=== PATIENT | male | born 1950 | race Caucasian/White ===

== ENCOUNTER 2016-10-10 23:26 | Inpatient (IN) | payer OTHER, MEDICARE, BC ==
[2016-10-10] MEDS ORDERED: ACETAMINOPHEN TAB 500 MG TAB PO STA (23:58)
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
[2016-10-11] MEDS: SODIUM CHLORIDE 0.9% 500 ML IV SCH (00:31)
[2016-10-11 00:33] LABS: Basophils # (A) 0.1 k/uL (0-0.2); Basophils % (A) 1 %; CHCM 33.5; Eosinophils # (A) 0.1 k/uL (0-0.7); Eosinophils % (A) 1 %; HCT 46.8 % (39.0-53.0); HDW 2.63; HGB 14.9 gm/dL (13.0-17.5); Luc # (Auto) 0.16; Luc % (Auto) 1; Lymphocytes # (A) 1.2 k/uL (1.0-4.8); Lymphocytes % (A) 9 %; MCH 26.7 pg (25.0-35.0); MCHC 31.9 g/dL (31.0-37.0); MCV 83.9 fL (80.0-100.0); Mean Platelet Volume 8.6; Monocytes # (A) 0.6 k/uL (0-1.0); Monocytes % (A) 4 %; Neutrophils # (A) 11.1 k/uL (1.3-7.7); Neutrophils % (A) 84 %; RBC 5.58 m/uL (4.30-5.90); RDW 13.3 % (11.5-15.5); WBC 13.3 k/uL (3.8-10.6); WBC (Perox) 12.44
[2016-10-11 00:45] LABS: ALT 49 U/L (21-72); AST 25 U/L (17-59); Alkaline Phosphatase 92 U/L (38-126); Anion Gap 14 mmol/L; Blood Urea Nitrogen 17 mg/dL (9-20); Calcium 9.2 mg/dL (8.4-10.2); Carbon Dioxide 26 mmol/L (22-30); Chloride 101 mmol/L (98-107); Glucose 160 mg/dL (74-99); Non-African American GFR(MDRD) >60 (>60 ml/min/1.73 sqM); Potassium 3.9 mmol/L (3.5-5.1); Sodium 141 mmol/L (137-145); Total Bilirubin 0.7 mg/dL (0.2-1.3); Total Protein 7.8 g/dL (6.3-8.2)
[2016-10-11 01:06] LABS: Troponin I 0.015 ng/mL (0.000-0.034)
--- NOTE | 2016-10-11 01:19 | XR ---
EXAMINATION TYPE: XR chest 2V DATE OF EXAM: 10/11/2016 1:00 AM COMPARISON: None. HISTORY: Chills and fever. TECHNIQUE: Frontal and lateral views of the chest are obtained. FINDINGS: Suspected mild infiltrates and atelectasis in the right lung base. No pneumothorax or pleural effusion. The cardiac silhouette size is within normal limits. The osseous structures are intact. IMPRESSION: 1. Mild infiltrate and atelectasis is suspected in the right lung base.
[2016-10-11 01:22] LABS: Appearance,Urine Clear (Clear); Bilirubin,Urine Negative (Negative); Glucose,Urine (UA) Trace (Negative); Ketones,Urine Trace (Negative); Leukocyte Esterase,Urine Negative (Negative); Mucus,Urine Rare /hpf; Nitrite,Urine Negative (Negative); Particle Count 1535; Protein,Urine Trace (Negative); RBC,Urine 6 /hpf (0-5); Specific Gravity,Urine 1.017 (1.001-1.035); UA Billing (MACRO vs. MICRO) MICRO; Urobilinogen,Urine <2.0 mg/dL (<2.0); WBC,Urine 1 /hpf (0-5)
[2016-10-11] MEDS ORDERED: PNEUMONIA PROTOCOL UTILIZED 1 EACH MISC PO PRN (01:54)
[2016-10-11] MEDS ORDERED: AZITHROMYCIN 500 MG in SODIUM CHLORIDE 0.9% 250 ML IVPB STA (01:54)
[2016-10-11] MEDS ORDERED: LEVOFLOXACIN 750MG-D5W PMX 750 MG in DEXTROSE/WATER 1 150ML.BAG IVPB STA (01:59)
[2016-10-11] MEDS ORDERED: PIPERACILLIN-TAZOBACTAM 3.375 GM in DEXTROSE/WATER 1 50ML.BAG IVPB STA (01:59)
[2016-10-11] MEDS ORDERED: ACETAMINOPHEN TAB 325 MG TAB PO PRN (02:06)
[2016-10-11] MEDS: SODIUM CHLORIDE 0.9% 1,000 ML IV SCH ×2 (02:22→12:31)
[2016-10-11 06:23] LABS: Creatine Kinase MB 0.7 ng/mL (0.0-2.4); Troponin I 0.013 ng/mL (0.000-0.034)
[2016-10-11 07:42] VITALS: BP 127/73; PULSE 61; RESP 20; TEMP 97.6
[2016-10-11] MEDS ORDERED: PIPERACILLIN-TAZOBACTAM 3.375 GM in DEXTROSE/WATER 1 50ML.BAG IVPB SCH (12:00)
[2016-10-11 12:58] LABS: Creatine Kinase 134 U/L (55-170)
[2016-10-11 13:10] LABS: Creatine Kinase MB 0.9 ng/mL (0.0-2.4); Troponin I <0.012 ng/mL (0.000-0.034)
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
[2016-10-12] MEDS ORDERED: AZITHROMYCIN 500 MG TAB PO SCH (01:54)
[2016-10-12] MEDS ORDERED: LEVOFLOXACIN 750MG-D5W PMX 750 MG in DEXTROSE/WATER 1 150ML.BAG IVPB SCH (09:00)
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
== END 2016-10-11 14:40 | disposition home or self-care (01) | DRG 871 ==
LOC: EC 23:26 → 4MS4W 10-11 02:06
PROVIDERS: ADMIT Internal Medicine; ATTEND Internal Medicine
DX: A41.9 Sepsis, unspecified organism (principal); J69.0 Pneumonitis due to inhalation of food and vomit; I10 Essential (primary) hypertension; Z87.01 Personal history of pneumonia (recurrent); Z87.442 Personal history of urinary calculi; Z87.891 Personal history of nicotine dependence
CPT/HCPCS: 36415; 71020; 80053; 81001; 82550; 82553; 83605; 84484; 85025; 87040; 87086; 87502; 96361; 96365; 99285

== ENCOUNTER 2016-11-20 07:24 | Day surgery (SDC) | payer MEDICARE, BC ==
[2016-11-18 09:33] VITALS: BMI 48.7
[~2016-11-20 07:24] MED LIST: LACTATED RINGERS 1,000 ML IV SCH
[2016-11-20 07:46] VITALS: RESP 16; TEMP 97
[2016-11-20] MEDS ORDERED: LIDOCAINE 1% 20 ML VIAL (10MG/ML) FOR IV START INTRADERMA ONE (08:16)
[2016-11-20 08:17] LABS: Glucose,Whole Blood 116 mg/dL (75-99)
[2016-11-20] MEDS ORDERED: PROPOFOL 10 MG/ML 20 ML VIAL IV ONE (08:25)
[2016-11-20] MEDS ORDERED: LIDOCAINE 1% INJ 10MG/ML (20 ML MDV) ONE (08:25)
--- NOTE | 2016-11-20 08:48 | P.PCN ---
Date of Procedure: 11/20/16 Procedure(s) Performed: Procedure: Total colonoscopy. Preoperative diagnosis: Screening for neoplasia. Postoperative diagnosis: Sigmoid diverticulosis with no evidence of acute diverticulitis, strictures, polyps or cancer. Preparation: HalfLytely prep. Sedation: Was provided by anesthesia. Brief clinical history: The patient is a 66-year-old male who is referred for this evaluation for screening for neoplasia age being his risk factor. He had a prior exam in 8-10 years ago. He has no abdominal complaints, bleeding or anemia. Procedure: With the patient on his left lateral decubitus position and after informed consent and adequate sedation, the perianal area was inspected and it did not show any fissures or fistulas. There were no masses felt on digital rectal examination. The Olympus CFQ 160L Was then inserted in the rectum in the usual fashion and advanced to the cecum. The mucosa appeared healthy. No polyps or tumors were seen. Several diverticular orifices were seen scattered in the sigmoid with no evidence of acute diverticulitis or strictures. I retroflexed endoscope in the rectum before the endoscope was withdrawn. The patient tolerated the procedure well. Plan: The patient was reassured. Discussed dietary measures. He will follow up with you as planned and I recommended repeat exam in 10 years.
[2016-11-20 09:19] VITALS: BP 154/86; PULSE 68
== END 2016-11-20 09:34 | disposition home or self-care (01) ==
LOC: ORWHC2ENDO 07:24
DX: Z12.11 Encounter for screening for malignant neoplasm of colon (principal); K57.30 Diverticulosis of large intestine without perforation or abscess without bleeding; I10 Essential (primary) hypertension; E11.9 Type 2 diabetes mellitus without complications; Z87.891 Personal history of nicotine dependence; Z79.899 Other long term (current) drug therapy
CPT/HCPCS: J2001; J2704; G0121

== ENCOUNTER → 2017-05-12 | Outpatient (CLI) | payer MEDICARE, BC ==
[2017-05-12 13:45] LABS: Blood Urea Nitrogen 22 mg/dL (9-20); Non-African American GFR(MDRD) >60 (>60 ml/min/1.73 sqM)
--- NOTE | 2017-05-12 14:47 | CT ---
EXAMINATION TYPE: CT abdomen pelvis w con DATE OF EXAM: 05/12/2017 COMPARISON: NONE INDICATION: Hematuria DLP: 4595 mGycm, Automated exposure control for dose reduction was used. CONTRAST: 100 mL of Omnipaque 300. Study performed with Oral Contrast TECHNIQUE: Axial images were obtained from above the diaphragm to the pubic rami in the axial plane a t 5 mm thick sections. Reconstructed images are reviewed on the computer in the coronal plane. FINDINGS: Limited CT sections are obtained the lung bases. The lung bases are clear. CT ABDOMEN: Liver: Tiny cyst may be in the lateral right lobe of liver. This is too small to classify. Liver is o therwise unremarkable. Spleen: Normal Pancreas: Normal Adrenal glands: The adrenal glands are normal. Gallbladder: Normal Kidneys: No masses are evident. There is a 1.3 x 0.9 cm calcification within the left renal pelvis. N o hydronephrosis is evident. No hydroureter is evident. There is a nonobstructing calcification at th e inferior pole of the left kidney measuring 0.6 cm. Adjacent 0.3 cm calcification is also present. Aorta: Vascular calcification is within the aorta. Inferior vena cava: Normal. CT PELVIS: Loops of bowel within the abdomen and pelvis are normal. There are loops of bowel which are incom pletely distended or lack oral contrast limiting their evaluation. Appendix: Normal as visualized. Urinary bladder: Normal. Genitourinary structures: Prostate is prominent. Some minimal calcification is present. Osseous structures: There is some lucency within the medial right iliac wing which appears to have so mewhat smooth margins. Facet degenerative changes are present. IMPRESSIONS: 1. Nonobstructing left renal pelvis stone. Nonobstructing inferior pole renal stones are present. 2. Probable tiny cyst within the right lobe liver. 3. Lucency within the medial right iliac wing. This is more benign appearance. Consider short-term fo llow-up.
== END | disposition home or self-care (01) ==
LOC: RADCTMAIN 12:19
PROVIDERS: ATTEND Family Medicine
DX: N20.0 Calculus of kidney (principal); R93.7 Abnormal findings on diagnostic imaging of other parts of musculoskeletal system
CPT/HCPCS: 82565; 84520; 74177; 36415; Q9967

== ENCOUNTER → 2018-05-04 | Outpatient (CLI) | payer MEDICARE ==
--- NOTE | 2018-05-05 08:18 | CT ---
EXAMINATION TYPE: CT abdomen pelvis w con DATE OF EXAM: 05/04/2018 COMPARISON: HISTORY: Gross hematuria. CT DLP: 2554.7 mGycm CONTRAST: CT scan of the abdomen and pelvis is performed with Oral Contrast and with IV Contrast, patient injec rocky with 100ml mL of Isovue 300. FINDINGS: LUNG BASES-: No visible nodule. No infiltrate. LIVER/GB: No calcified gallstones. No space occupying hepatic lesion. Biliary tree is of normal ca liber. PANCREAS: No inflammation. No distinct mass. SPLEEN: No splenic enlargement. No lesion seen. ADRENALS: No nodule. No thickening. KIDNEYS/BLADDER: No hydronephrosis. 1.2 cm calculus left renal pelvis. There is mild urothelial thi ckening. Additional calculi lower pole left kidney. Tiny nonobstructing renal calculi lower pole righ t kidney. No evidence for hydronephrosis. No distinct renal mass. Urinary bladder grossly unremarkab le. BOWEL: Normal appendix. Normal bowel caliber. No inflammation. GENITAL ORGANS: No gross abnormality. LYMPH NODES: No greater than 1cm abdominal or pelvic lymph nodes are appreciated. AORTA: No significant abnormality. OSSEOUS STRUCTURES: No significant abnormality is seen. OTHER: No significant additional abnormality is seen. IMPRESSION: 1. 1.2 cm calculus left renal pelvis with urothelial thickening. No hydronephrosis at this time. Darío tional nonobstructing renal calculi noted.
== END | disposition home or self-care (01) ==
LOC: RADCTMAIN 16:51
PROVIDERS: ATTEND Family Medicine
DX: N20.0 Calculus of kidney (principal)
CPT/HCPCS: 74177; Q9967

== ENCOUNTER 2018-05-10 06:51 | Day surgery (SDC) | payer BC, MEDICARE ==
[2018-05-06 11:38] VITALS: BMI 48.0
[2018-05-10 07:10] VITALS: RESP 18; TEMP 97.9
[2018-05-10] MEDS ORDERED: LACTATED RINGERS 1,000 ML IV ONE (07:13)
[2018-05-10 07:26] LABS: Glucose,Whole Blood 108 mg/dL (75-99)
[2018-05-10] MEDS ORDERED: LIDOCAINE 1% INJ 10MG/ML (20 ML MDV) ONE (07:55)
[2018-05-10] MEDS ORDERED: PROPOFOL 10 MG/ML 20 ML VIAL IV ONE (07:55)
[2018-05-10] MEDS ORDERED: fentaNYL (PF) 50 MCG/ML 2 ML AMP ONE (07:55)
[2018-05-10 08:42] LABS: Glucose,Whole Blood 99 mg/dL (75-99)
[2018-05-10 08:55] VITALS: BP 130/79; PULSE 57
--- NOTE | 2018-05-10 13:43 | P.PCN ---
Date of Procedure: 05/10/18 Procedure(s) Performed: Procedure: Esophagogastroduodenoscopy and biopsy. Preoperative diagnosis: Dysphagia and episodes of choking. Postoperative diagnosis: 1. Mild gastritis with no obvious hiatal hernia, esophagitis, complicated reflux disease or other pathology. 2. Multiple biopsies obtained from the duodenum, antrum and esophagus. Preparation and sedation: Was provided by anesthesia. Brief clinical history: The patient is a 68-year-old male who was scheduled for this evaluation because of episodes of choking and dysphagia. The patient does not have definite history of acid reflux and denied any alarm symptoms such as bleeding or weight loss and there is no history of anemia. This evaluation is to assess for esophagitis or complicated reflux disease. Procedure: With the patient on his left lateral decubitus position and after informed consent and adequate sedation, I passed the Olympus-GIF 160 video upper endoscope through the cricopharyngeus down the esophagus. GE junction was around 42-43 cm from the incisors and there was no definite hiatal hernia. The endoscope was then passed into the stomach which was insufflated with air and inspected in detail including the retroflex view in the cardia. There was some mottling and erythema in the antrum but no ulcers or erosions. Pyloric channel, duodenal bulb, post bulbar area and descending duodenum appeared within normal limits. Because of his symptoms, I obtained biopsies from the duodenum, antrum and esophagus then the endoscope was withdrawn. The patient tolerated the procedure well. Plan: The patient was reassured. Will await biopsy results and make further plans based on his course and biopsy results.
== END 2018-05-10 09:20 | disposition home or self-care (01) ==
LOC: ORWHC2ENDO 06:51
DX: K29.50 Unspecified chronic gastritis without bleeding (principal); K21.0 Gastro-esophageal reflux disease with esophagitis; E11.9 Type 2 diabetes mellitus without complications; Z79.84 Long term (current) use of oral hypoglycemic drugs; Z79.899 Other long term (current) drug therapy; I10 Essential (primary) hypertension; Z87.442 Personal history of urinary calculi; Z87.891 Personal history of nicotine dependence; E66.01 Morbid (severe) obesity due to excess calories; Z68.42 Body mass index [BMI] 45.0-49.9, adult
CPT/HCPCS: 88305; 43239; J2001; J3010; J2704

== ENCOUNTER → 2018-07-28 | Outpatient (CLI) | payer MEDICARE ==
[2018-07-28 13:11] LABS: Basophils # (A) 0.1 k/uL (0-0.2); Basophils % (A) 1 %; Eosinophils # (A) 0.3 k/uL (0-0.7); Eosinophils % (A) 3 %; HCT 45.8 % (39.0-53.0); HGB 14.5 gm/dL (13.0-17.5); Lymphocytes # (A) 2.2 k/uL (1.0-4.8); Lymphocytes % (A) 26 %; MCH 27.3 pg (25.0-35.0); MCHC 31.7 g/dL (31.0-37.0); MCV 85.9 fL (80.0-100.0); Mean Platelet Volume 7.3; Monocytes # (A) 0.4 k/uL (0-1.0); Monocytes % (A) 5 %; Neutrophils # (A) 5.4 k/uL (1.3-7.7); Neutrophils % (A) 64 %; Platelet Count 232 k/uL (150-450); RBC 5.33 m/uL (4.30-5.90); RDW 13.4 % (11.5-15.5); WBC 8.5 k/uL (3.8-10.6)
[2018-07-28 13:15] LABS: Anion Gap 10 mmol/L; Blood Urea Nitrogen 19 mg/dL (9-20); Calcium 9.3 mg/dL (8.4-10.2); Carbon Dioxide 29 mmol/L (22-30); Chloride 103 mmol/L (98-107); Glucose 128 mg/dL (74-99); Potassium 4.6 mmol/L (3.5-5.1); Sodium 142 mmol/L (137-145)
== END | disposition home or self-care (01) ==
LOC: LABPAT 11:52
PROVIDERS: ATTEND Urology
DX: Z01.818 Encounter for other preprocedural examination (principal); Z01.812 Encounter for preprocedural laboratory examination; N20.1 Calculus of ureter; E11.9 Type 2 diabetes mellitus without complications; I10 Essential (primary) hypertension
CPT/HCPCS: 80048; 85025; 93005

== ENCOUNTER 2018-07-29 07:24 | Day surgery (SDC) | payer MEDICARE ==
--- NOTE | 2018-07-27 11:40 | P.GSHP ---
History of Present Illness H&P Date: 07/17/18 Chief Complaint: Gross hematuria The patient is a 68-year-old white male with a history of urolithiasis in the past, none of which has required surgery. He now presents with a several month history of left flank discomfort, as well as recent gross hematuria. A CT scan has shown a 12 mm left renal pelvic calculus, as well as well as mild urothelial thickening of the renal pelvis. Urine cytology was negative. Alternative treatment options were reviewed, primarily consisting of ESWL versus ureteroscopy with laser lithotripsy. He has elected to undergo the latter, given its higher success rate as well as the fact that this will allow visualization of the urothelium with biopsies if indicated. - Constitutional Constitutional: Denies chills, Denies fever - Respiratory Respiratory: Denies dyspnea - Gastrointestinal Gastrointestinal: Denies nausea, Denies vomiting - Genitourinary (Female) Genitourinary: Reports flank pain, Reports hematuria, Reports kidney stones, Denies dysuria Past Medical History Past Medical History: Diabetes Mellitus, GERD/Reflux, Hypertension, Pneumonia Additional Past Medical History / Comment(s): kidney stones, History of Any Multi-Drug Resistant Organisms: None Reported Past Surgical History: Orthopedic Surgery Additional Past Surgical History / Comment(s): colonoscopy, ORIF left ankle Past Anesthesia/Blood Transfusion Reactions: No Reported Reaction Past Alcohol Use History: None Reported Additional Past Alcohol Use History / Comment(s): Pt states he smoked for about 20years, 1PPD; he quits "many many years ago" - Past Family History Father History Unknown: Yes Mother History Unknown: Yes Family Medical History: No Reported History Medications and Allergies Home Medications Medication Instructions Recorded Confirmed Type Multivitamins, Thera [Multivitamin] 1 tab PO DAILY #30 tablet 10/11/16 07/27/18 Rx Cholecalciferol (Vitamin D3) 2,000 unit PO DAILY 05/06/18 07/27/18 History [Vitamin D3] Famotidine 40 mg PO DAILY 05/06/18 07/27/18 History Lisinopril [Zestril] 10 mg PO DAILY 05/06/18 07/27/18 History metFORMIN HCL [Glucophage] 500 mg PO BID 05/06/18 07/27/18 History Allergies Allergy/AdvReac Type Severity Reaction Status Date / Time No Known Allergies Allergy Verified 07/27/18 10:06 Surgical - Exam - General well developed, well nourished, no distress - Neck no masses, trachea midline - Respiratory normal respiratory effort, clear to auscultation - Cardiovascular Rhythm: regular Abnormal Heart Sounds: no systolic murmur, no diastolic murmur, no rub, no S3 Gallop, no S4 Gallop, no click, no other - Abdomen Abdomen: soft, non tender, no guarding, no rigid, no rebound - Genitourinary normal penis with no external lesions, testicles non-tender - Rectum Rectum: normal sphincter tone - Psychiatric oriented to time, oriented to person, oriented to place, speech is normal, memory intact Results - Imaging CT scan - abdomen: report reviewed, image reviewed Assessment and Plan (1) Calculus of kidney Status: Acute Code(s): N20.0 - CALCULUS OF KIDNEY SNOMED Code(s): 56124986 Plan: Cystoscopy, left ureteroscopy with Holmium laser lithotripsy, possible stone basketing, possible renal pelvic mucosal biopsy. The procedure has been reviewed in detail with the patient. He understands that he will require a ureteral stent postoperatively. Potential risks were reviewed. These include anesthesia, bleeding, infection, incomplete fragmentation, and ureteral injury.
[2018-07-28 08:14] VITALS: BMI 48.7
[~2018-07-29 07:24] MED LIST changes: +MORPHINE SULFATE 2 MG/ML SYRINGE IV PRN; +ceFAZolin IN SWFI 2 GM/20 ML SYRINGE IVP ONE
[2018-07-29 08:05] LABS: Glucose,Whole Blood 105 mg/dL (75-99)
[2018-07-29] MEDS ORDERED: ONDANSETRON 4 MG/2 ML VIAL IVP ONE (08:05)
[2018-07-29] MEDS ORDERED: LIDOCAINE 1% 20 ML VIAL (10MG/ML) FOR IV START INTRADERMA ONE (08:05)
--- NOTE | 2018-07-29 08:10 | XR ---
EXAMINATION TYPE: XR KUB DATE OF EXAM: 07/29/2018 CLINICAL DATA: 69-year-old male with kidney stones, preop lithotripsy left side today, [facility] COMPARISON: CT 05/04/2018 FINDINGS: Nonobstructive bowel gas pattern. Scattered [id number] stool. There are 2 calcifications of the left measuring 1.7 and 0.9 cm and 2 punctate 3 or 4 mm calculi on t he right. Stable phlebolith in the pelvis. IMPRESSION: A 1.7 and 0.9 cm calculus on the left, the larger of which corresponds to the calculus seen within th e renal pelvis on recent CT. Additional punctate nonobstructive calculi on the right.
[2018-07-29 08:12] VITALS: TEMP 97.3
[2018-07-29] MEDS ORDERED: LIDOCAINE 1% INJ 10MG/ML (20 ML MDV) ONE (09:30)
[2018-07-29] MEDS ORDERED: SUCCINYLCHOLINE CHLORIDE 100 MG/5 ML SYR IV ONE (09:30)
[2018-07-29] MEDS ORDERED: MIDAZOLAM 2 MG/2 ML VIAL ONE (09:30)
[2018-07-29] MEDS ORDERED: NEOSTIGMINE 1 MG/ML 10 ML VIAL ONE (09:30)
[2018-07-29] MEDS ORDERED: HYDROmorphone (PF) 1 MG/ML ONE (09:30)
[2018-07-29] MEDS ORDERED: GLYCOPYRROLATE 0.2 MG/ML 2 ML VIAL ONE (09:30)
[2018-07-29] MEDS ORDERED: fentaNYL (PF) 50 MCG/ML 2 ML AMP ONE (09:30)
[2018-07-29] MEDS ORDERED: PROPOFOL 10 MG/ML 20 ML VIAL IV ONE (09:30)
[2018-07-29] MEDS ORDERED: ROCURONIUM BROMIDE 10 MG/ML 10 ML VIAL IV ONE (09:30)
[2018-07-29] MEDS ORDERED: LACTATED RINGERS 1,000 ML IV ONE (11:30)
--- NOTE | 2018-07-29 11:58 | P.OP ---
Date of Procedure: 07/29/18 Preoperative Diagnosis: Left renal calculus Postoperative Diagnosis: Same Procedure(s) Performed: Cystoscopy, left ureteroscopy with Holmium laser lithotripsy, left ureteral stent insertion Anesthesia: GLENNA Surgeon: Shahid Hurley Estimated Blood Loss (ml): 5 IV fluids (ml): 800 Pathology: none sent Condition: stable Disposition: PACU Indications for Procedure: The patient is a 68-year-old white male with a history of urolithiasis in the past, none of which has required surgery. He now presents with a several month history of left flank discomfort, as well as recent gross hematuria. A CT scan has shown a 12 mm left renal pelvic calculus, as well as well as mild urothelial thickening of the renal pelvis. Urine cytology was negative. Alternative treatment options were reviewed, primarily consisting of ESWL versus ureteroscopy with laser lithotripsy. He has elected to undergo the latter, given its higher success rate as well as the fact that this will allow visualization of the urothelium with biopsies if indicated. Operative Findings: Left UPJ calculus, fragmented to completion. No suspicious for urothelial changes noted. Description of Procedure: The patient was taken to the operating room and placed in the dorsolithotomy position, with legs supported in Andrea stirrups. The external genitalia was prepped and draped sterilely. The 30 lens was used to introduce the 19-Thai Stortz cystoscopic sheath through the urethra and into the bladder under direct vision. The prostatic urethra showed evidence of mild lateral lobe enlargement and a high median bar. The bladder was examined in its entirety. Both ureteral orifices were normal anatomic location and configuration, and clear urine effluxed from both. No tumors or foreign bodies were seen. A 0.038 inch Glidewire was passed through the cystoscope. The left ureteral orifice was cannulated, and the Glidewire was advanced up to the left renal pelvis. The cystoscope was removed, and an 11/13-Thai ureteral access catheter was passed over the wire, up to the mid ureter. The mini flexible ureteroscope was passed through the ureteral access catheter and advanced under direct vision, up to the ureteropelvic junction where the calculus was identified. The 200 micron Holmium laser probe was passed through the ureteroscope, and lithotripsy was performed. Initially, a dusting technique was utilized. Ultimately, the calculus began to fragment and lithotripsy was continued using a popcorning technique, until there were no residual calculus fragments exceeding the diameter of the laser fiber. The ureteroscope was removed. The Glidewire was passed through the ureteral access catheter sheath and up to the left renal pelvis. The ureteral access catheter sheath was removed, and the Glidewire was backloaded into the cystoscope, which was passed into the bladder. A 4.8-Thai, 28 cm double-J ureteral stent was placed over the wire. Proper stent positioning was verified fluoroscopically and endoscopically. The bladder was emptied and the cystoscope removed. The patient tolerated the procedure well and was taken to the recovery room in stable condition.
[2018-07-29] MEDS ORDERED: HYDROmorphone 1 MG/ML 1 ML SYRINGE IVP ONE ×2 (12:31→12:36)
--- NOTE | 2018-07-29 14:04 | FL ---
Fluoroscopy HISTORY: left ureter stone 27 seconds fluoroscopy time supplied to the referring clinician. 1 intraoperative C-arm images do cument the procedure. See dictated report from urology.
[2018-07-29 14:05] VITALS: BP 116/56; PULSE 58; RESP 18
== END 2018-07-29 14:32 | disposition home or self-care (01) ==
LOC: OR 07:24
PROVIDERS: ATTEND Urology
DX: N20.2 Calculus of kidney with calculus of ureter (principal); N40.0 Benign prostatic hyperplasia without lower urinary tract symptoms; E11.9 Type 2 diabetes mellitus without complications; K21.9 Gastro-esophageal reflux disease without esophagitis; E78.5 Hyperlipidemia, unspecified; I10 Essential (primary) hypertension; Z87.01 Personal history of pneumonia (recurrent); Z87.891 Personal history of nicotine dependence; Z79.84 Long term (current) use of oral hypoglycemic drugs; Z87.442 Personal history of urinary calculi; Z79.899 Other long term (current) drug therapy
CPT/HCPCS: 74420; 74018; 52356; C2625; J2250; J2710; J2405; J2001; J3010; J1170; J0330; J2704; J0690

== ENCOUNTER → 2018-09-06 | Outpatient (CLI) | payer MEDICARE ==
--- NOTE | 2018-09-06 12:01 | US ---
EXAMINATION TYPE: US kidneys/renal and bladder DATE OF EXAM: 09/06/2018 COMPARISON: CT 05/04/2018 CLINICAL HISTORY: N20.0 Calculus of Kidney. EXAM MEASUREMENTS: Right Kidney: 12.4 x 5.9 x 5.4 cm Left Kidney: 13.4 x 5.6 x 5.0 cm Right Kidney: No hydronephrosis or masses seen Left Kidney: No hydronephrosis or masses seen. Echogenic foci visualized measuring 7 mm. Prominent, B ertin is incidentally seen. Bladder: wnl Bilateral Jets seen: No, bladder not distended There is no evidence for hydronephrosis at this point in time. No masses are identified. The urina ry bladder is anechoic. IMPRESSION: 7 mm nonobstructing left renal calculus. No evidence of hydronephrosis of either kidney.
== END | disposition home or self-care (01) ==
LOC: RADUSWWP 10:51
PROVIDERS: ATTEND Urology
DX: N20.0 Calculus of kidney (principal)
CPT/HCPCS: 76770

== ENCOUNTER → 2020-12-21 | Outpatient (CLI) | payer MEDICARE ==
--- NOTE | 2020-12-21 13:47 | MR ---
EXAMINATION TYPE: MR brain wo/w con DATE OF EXAM: 12/21/2020 12:39 PM COMPARISON: NONE HISTORY: Cerebral infarction, double vision CONTRAST: Patient received 15 mL intravenous Gadavist gadolinium contrast. Multiplanar and multispin-echo imaging of the brain was performed . Pre and post contrast enhanced i mages are obtained. There is a rim-enhancing mass identified in the region of the left thalamus which measures 3.8 x 2.8 x 2.3 cm. The mass extends medially to impart mass effect upon the posterior aspect of the third vent ricle adjacent to the pineal cistern. There is an adjacent enhancing nodule identified measuring 5.5 mm The ventricles, basal cisterns and sulci overlying the cerebral convexities are mildly enlarged. There is evidence of mild periventricular white matter ischemic demyelination. Remote deep white matter insults are also noted. No acute edema is seen on diffusion weighted imaging. There is no evidence for midline shift or mass effect. Acute intracranial hemorrhage or extra-axial collection is not evident. No enhancing lesions are seen. The paranasal sinuses and mastoid air cells are well-aerated. IMPRESSION: 1. 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 There is a smaller adjacent satellite lesion. Less likely w ould be metastatic disease. A [place] critical message alert has been initiated for Baldo Caldwell MD via the [employer] on 12/21/2020 1:44 PM. This message alert has been sent to Baldo Caldwell MD via t preferences provided by the clinician for the receipt of Radiology Critical Findings. Message ID [id number].
== END | disposition home or self-care (01) ==
LOC: RADMRIMAIN 11:18
PROVIDERS: ATTEND Family Medicine
DX: I63.9 Cerebral infarction, unspecified (principal); H53.2 Diplopia
CPT/HCPCS: 70553; A9585

== ENCOUNTER → 2021-01-18 | Outpatient (CLI) | payer MEDICARE ==
--- NOTE | 2021-01-19 03:35 | MR ---
EXAMINATION TYPE: MR brain wo/w con DATE OF EXAM: 01/18/2021 COMPARISON: 12/21/2020 HISTORY: Brain tumor CONTRAST: Standard multiplanar, multisequence MRI departmental protocol utilizing mL intravenous gadolinium con trast. There is lobulated mass in the left cerebral hemisphere arising from the posterior left thalamus. Thi s extends into the medial left temporal lobe and a mass measures overall 5.1 x 3.9 x 3.5 cm. There is a thick rim of enhancement. There is mild effacement of the third ventricle. The mass extends inferi fab into the posterior brainstem at the level of the left cerebral peduncle. The cerebellum is intact. There is no evidence of intracranial hemorrhage. There is normal enhancemen t of the venous sinuses. IMPRESSION: Large irregular enhancing mass as above in the left thalamus has increased from greatest dimension 4 cm in greatest dimension 5.1 cm compared to last exam. This is consistent with a high-grade glioma. T here is more extension across the midline compared to old exam. Right maxillary sinusitis unchanged.
== END | disposition home or self-care (01) ==
LOC: RADMRIMAIN 13:00
PROVIDERS: ATTEND Radiology Radiation Oncology
DX: C71.0 Malignant neoplasm of cerebrum, except lobes and ventricles (principal); Z87.891 Personal history of nicotine dependence
CPT/HCPCS: 70553; A9585